=== PATIENT | male | born 1960 | race Caucasian/White ===

== ENCOUNTER 2017-10-13 10:21 | Emergency (ER) | payer BC ==
[~2017-10-13] VITALS: Ht 170.2 cm; Wt 88.5 kg
[~2017-10-13 10:21] MED LIST: ASPI325 PO; ATOR80 PO; CLOP75 PO; INSULANPEN; LISI5 PO; METF500; METF500 PO; METO10 PO; METO25 PO; PANT40 PO
[2017-10-13] MEDS ORDERED: ASPI81CH PO (10:38)
[2017-10-13] MEDS ORDERED: METF500 PO (10:40)
[2017-10-13] MEDS ORDERED: TAMS.4ER PO (10:42)
[2017-10-13 10:44] LABS: BASOPHILS ABSOLUTE AUTO 0.04 K/mm3 (0.00-0.23); BASOPHILS PERCENT AUTO 1 % (0-2); EOSINOPHILS ABSOLUTE AUTO 0.07 K/mm3 (0.00-0.68); EOSINOPHILS PERCENT AUTO 1 % (0-6); Hematocrit 44.3 % (37.0-53.0); IMMATURE GRAN ABSOLUTE AUTO 0.01 K/mm3 (0.00-0.10); IMMATURE GRAN PERCENT AUTO 0 % (0-1); LYMPHOCYTES ABSOLUTE AUTO 0.86 K/mm3 (0.84-5.20); LYMPHOCYTES PERCENT AUTO 12 % (21-46); MONOCYTES ABSOLUTE AUTO 0.35 K/mm3 (0.16-1.47); MONOCYTES PERCENT AUTO 5 % (4-13); Mean Corpuscular HGB 30.9 pg (26.0-34.0); Mean Corpuscular HGB Conc 33.9 g/dL (31.5-36.5); Mean Corpuscular Volume 91 fL (80-100); Mean Platelet Volume 10.1 fL (9.1-12.4); NEUTROPHILS ABSOLUTE AUTO 5.69 K/mm3 (1.96-9.15); NEUTROPHILS PERCENT AUTO 81 % (41-73); Platelet Count 160 K/mm3 (150-400); RDW Coefficient Variation 13.2 % (11.7-14.2); RDW Standard Deviation 44.3 fL (35.1-46.3); Red Blood Cell Count 4.86 M/mm3 (4.30-5.90); White Blood Cell Count 7.02 K/mm3 (4.00-11.30)
[2017-10-13 11:08] LABS: Alanine Aminotransfer (ALT/SGP 54 U/L (12-78); Albumin, Blood 3.4 g/dL (3.4-5.0); Alk Phos 89 U/L (50-136); Anion Gap 11 mmol/L (6-16); Aspartate Aminotrans (AST/SGOT 28 U/L (12-37); Bilirubin, Total 0.5 mg/dL (0.1-1.0); Blood Urea Nitrogen 15 mg/dL (8-24); Bun/Creatinine Ratio 18.3 (12.0-20.0); CO2, Blood 21 mmol/L (21-32); Calcium, Blood 8.6 mg/dL (8.5-10.1); Chloride, Blood 108 mmol/L (98-108); Creatinine, Blood 0.82 mg/dL (0.60-1.20); Globulin, Blood 3.3 g/dL (2.2-4.0); Glomerular Filtration Rate >60 (60-); Glucose, Blood 157 mg/dL (70-99); Potassium, Blood 4.1 mmol/L (3.5-5.5); Sodium, Blood 140 mmol/L (136-145); Total Protein, Blood 6.7 g/dL (6.4-8.2); Troponin I <0.015 ng/mL (0.000-0.040)
[2018-07-18] MEDS ORDERED: PANT40 PO (10:32)
== END 2017-10-13 13:12 | disposition home or self-care (01) ==
LOC: ER 10:21
PROVIDERS: Emergency Medicine
DX: I47.1 Supraventricular tachycardia (principal); R07.9 Chest pain, unspecified; Z88.0 Allergy status to penicillin; Z79.82 Long term (current) use of aspirin; Z79.4 Long term (current) use of insulin; Z79.899 Other long term (current) drug therapy
CPT/HCPCS: 71046; 80053; 83735; 84484; 85025; 93005; 93010; 96360; 99284; J7030

== ENCOUNTER 2018-08-20 12:50 | Day surgery (SDC) | payer BC ==
[~2018-08-20] VITALS: Ht 167.6 cm; Wt 96.2 kg
[~2018-08-20 12:50] MED LIST changes: +ASPI81CH PO; +TAMS.4ER PO
== END 2018-08-20 16:14 | disposition home or self-care (01) ==
LOC: ORSCSDS 12:50
PROVIDERS: Internal Medicine Gastroenterology
PROC: 0DBL8ZX Excision of Transverse Colon, Via Natural or Artificial Opening Endoscopic, Diagnostic (ICD-10-PCS; principal; 2018-08-20 14:15)
PROC: 0DBK8ZX Excision of Ascending Colon, Via Natural or Artificial Opening Endoscopic, Diagnostic (ICD-10-PCS; principal; 2018-08-20 14:15)
DX: Z12.11 Encounter for screening for malignant neoplasm of colon (principal); D12.2 Benign neoplasm of ascending colon; D12.3 Benign neoplasm of transverse colon; K57.30 Diverticulosis of large intestine without perforation or abscess without bleeding; E88.81 Metabolic syndrome and other insulin resistance; F32.9 Major depressive disorder, single episode, unspecified; Z87.891 Personal history of nicotine dependence; E11.9 Type 2 diabetes mellitus without complications; Z79.82 Long term (current) use of aspirin; Z79.84 Long term (current) use of oral hypoglycemic drugs; Z79.899 Other long term (current) drug therapy
CPT/HCPCS: 82947; 88305; J7120

== ENCOUNTER 2023-11-28 13:57 | Observation (INO) | payer OTHER ==
[~2023-11-28] VITALS: Ht 170.2 cm; Wt 84.1 kg
[~2023-11-28 13:57] MED LIST changes: +CARV6.25 PO; +LOSA50 PO; +Lopressor 25 mg25 MG PO; +Prinivil10 MG PO
[2023-11-28 14:28] LABS: BASOPHILS ABSOLUTE AUTO 0.03 K/mm3 (0.00-0.23); BASOPHILS PERCENT AUTO 0 % (0-2); EOSINOPHILS ABSOLUTE AUTO 0.01 K/mm3 (0.00-0.68); EOSINOPHILS PERCENT AUTO 0 % (0-6); Hematocrit 43.5 % (37.0-53.0); Hemoglobin 15.7 g/dL (13.5-17.5); IMMATURE GRAN PERCENT AUTO 1 % (0-1); LYMPHOCYTES ABSOLUTE AUTO 0.52 K/mm3 (0.84-5.20); LYMPHOCYTES PERCENT AUTO 3 % (21-46); MONOCYTES ABSOLUTE AUTO 0.39 K/mm3 (0.16-1.47); MONOCYTES PERCENT AUTO 2 % (4-13); Mean Corpuscular HGB 32.7 pg (26.0-34.0); Mean Corpuscular HGB Conc 36.1 g/dL (31.5-36.5); Mean Corpuscular Volume 91 fL (80-100); Mean Platelet Volume 9.9 fL (9.1-12.4); NEUTROPHILS ABSOLUTE AUTO 16.85 K/mm3 (1.96-9.15); NEUTROPHILS PERCENT AUTO 94 % (41-73); Platelet Count 192 K/mm3 (150-400); RDW Coefficient Variation 12.6 % (11.7-14.2); RDW Standard Deviation 41.4 fL (35.1-46.3)
[2023-11-28 14:58] LABS: Albumin, Blood 3.7 g/dL (3.4-5.0); Bilirubin, Total 0.8 mg/dL (0.1-1.0); Bun/Creatinine Ratio 19.2 (12.0-20.0); Calcium, Blood 9.6 mg/dL (8.5-10.1); Creatinine, Blood 0.73 mg/dL (0.60-1.20); Globulin, Blood 3.6 g/dL (2.2-4.0); Potassium, Blood 4.6 mmol/L (3.5-5.5); Total Protein, Blood 7.3 g/dL (6.4-8.2)
[2023-11-28] MEDS ORDERED: Pantoprazole Sodium 40 MG Injection IV ONE (18:40)
[2023-11-28] MEDS ORDERED: Ondansetron HCl 2 MG / ML 2ML Vial IV ONE ×2 (18:40→20:45)
[2023-11-28] MEDS ORDERED: NS 1,000 ML IV SCH (18:40)
[2023-11-28] MEDS ORDERED: FentaNYL Citrate 50 MCG/ML 2 ML Injection IV ONE (20:40)
[2023-11-28] MEDS ORDERED: Ondansetron HCl 2 MG / ML 2ML Vial IV PRN (23:00)
[2023-11-28] MEDS ORDERED: FentaNYL Citrate 50 MCG/ML 2 ML Injection IV PRN (23:05)
[2023-11-28] MEDS ORDERED: NS 1,000 ML IV ONE (23:10)
[2023-11-28] MEDS ORDERED: Pantoprazole Sodium 40 MG in NS 50 ML IV SCH (23:10)
[2023-11-29] MEDS ORDERED: NS 1,000 ML IV ONE (00:15)
[2023-11-29 01:25] LABS: International Normalized Ratio 0.98; Prothrombin Time Results 10.5 Sec (9.7-11.5)
[2023-11-29] MEDS ORDERED: Mag Hydrox/Al Hydrox/Simeth 72 ML,Lidocaine 2% Viscous Soln 36 ML,Atropine/Scopalam/Hyo... PO PRN (01:35)
--- NOTE | 2023-11-29 01:54 | NUR ---
ADMISSION ASSESSMENT: PT FROM ED TO PCU ROOM 3 FOR ADMITTING DX OF C/P WITH ACCOMPANIED N/V ABDOMINAL PAIN. HE IS AXO X 4 AND HAS SLOW SPEECH, CALM AND COOPERATIVE WITH STAFF. HE HAS HX OF BIPOLAR. HE IS SINUS AND HAS UPPER EPIGASTRIC PAIN WITH TROP OF 215. RESPIRATORY WNL, LUNG SOUNDS CLEAR. ABDOMINAL PAIN IS 7/10 AT THIS TIME. DENIES ANY NAUSEA BUT REQUEST MEDICATION FOR PAIN. HE IS WEAK ON TRANSFER FROM [facility] TO BED BUT AMBULATORY. HE HAS 18G TO LAC. HARDY DENIES NEEDS AND APPEARS STABLE. CALL LIGHT IN REACH AND VSS.
[2023-11-29 03:24] VITALS: BP 119/63
[2023-11-29 04:16] LABS: Source, Urine Clean Catch
[2023-11-29 04:23] LABS: BASOPHILS ABSOLUTE AUTO 0.03 K/mm3 (0.00-0.23); BASOPHILS PERCENT AUTO 0 % (0-2); EOSINOPHILS PERCENT AUTO 0 % (0-6); Hematocrit 37.6 % (37.0-53.0); Hemoglobin 13.2 g/dL (13.5-17.5); IMMATURE GRAN ABSOLUTE AUTO 0.05 K/mm3 (0.00-0.10); IMMATURE GRAN PERCENT AUTO 0 % (0-1); LYMPHOCYTES ABSOLUTE AUTO 1.24 K/mm3 (0.84-5.20); LYMPHOCYTES PERCENT AUTO 10 % (21-46); MONOCYTES ABSOLUTE AUTO 0.67 K/mm3 (0.16-1.47); MONOCYTES PERCENT AUTO 6 % (4-13); Mean Corpuscular HGB 32.6 pg (26.0-34.0); Mean Corpuscular HGB Conc 35.1 g/dL (31.5-36.5); Mean Corpuscular Volume 93 fL (80-100); Mean Platelet Volume 10.2 fL (9.1-12.4); NEUTROPHILS ABSOLUTE AUTO 9.97 K/mm3 (1.96-9.15); NEUTROPHILS PERCENT AUTO 83 % (41-73); Platelet Count 156 K/mm3 (150-400); RDW Standard Deviation 43.7 fL (35.1-46.3); Red Blood Cell Count 4.05 M/mm3 (4.30-5.90); White Blood Cell Count 11.96 K/mm3 (4.00-11.30)
[2023-11-29 04:51] LABS: Albumin, Blood 3.1 g/dL (3.4-5.0); Albumin/Globulin Ratio 1.1 (0.8-1.8); Bilirubin, Total 0.6 mg/dL (0.1-1.0); Bun/Creatinine Ratio 31.2 (12.0-20.0); Calcium, Blood 8.7 mg/dL (8.5-10.1); Creatinine, Blood 0.7 mg/dL (0.60-1.20); Globulin, Blood 2.7 g/dL (2.2-4.0); Potassium, Blood 3.9 mmol/L (3.5-5.5); Total Protein, Blood 5.8 g/dL (6.4-8.2)
[2023-11-29 05:26] LABS: Bilirubin, Urine Neg (Neg); Blood, Urine Neg (Neg); Glucose Qualitative, Urine 2+ (Neg); Ketones, Urine 2+ (Neg); Leukocyte Esterase, Urine Neg (Neg); Nitrite, Urine Neg (Neg); Protein, Urine 1+ (Neg); Urobilinogen, Urine NORM (Normal)
--- NOTE | 2023-11-29 05:35 | NUR ---
PCU FEDERAL AGENT SUMMARY: PT HAD NO ACUTE CHANGES IN CONDITION SINCE ADMISSION ASSESSMENT. HE REMAINED AXO X 4 AND HEMODYNAMICALLY STABLE. PROTONIX AND FLUIDS STARTED PER EMAR. PT HAD REPORTED ABDOMINAL PAIN AND MEDICATED WITH FENTANYL UPON ADMISSION. SOON AFTER, HE REPORTED PAIN AGAIN AND WAS GIVEN GI COCKTAIL WITH RELIEF. HE DENIES ANY SOB AND SATTING 97% ON RA W/O DIFFICULTY. HE ENDORSES UPPER EPIGASTRIC PAIN. NO N/V T/O THE SHIFT. HE REMAINS STABLE AT THIS TIME SLEEPING IN ROOM WITH ALL VSS AND CALL LIGHT IN REACH.
[2023-11-29 05:50] LABS: Appearance, Urine Clear (Clear); Color, Urine Yellow (P-Yellow)
[2023-11-29] MEDS ORDERED: Insulin Human Lispro 100 Units/ML 3ML Syringe SC SCH (07:30)
[2023-11-29 07:33] VITALS: BP 137/73
[2023-11-29] MEDS ORDERED: Metoprolol Tartrate 25 MG Tab PO SCH (09:00)
[2023-11-29] MEDS ORDERED: Losartan Potassium 50 MG Tab PO SCH (09:00)
[2023-11-29] MEDS ORDERED: Aspirin 81 MG TabEC PO SCH (09:00)
--- NOTE | 2023-11-29 11:35 | NUR ---
PT RETURNED FROM IMAGING AND RESTARTED FLUIDS & PROTONIX PER EMAR. PT IS SITTING AT BEDSIDE EATING. CALL LIGHT WITHIN REACH AND BED AT LOWEST POSITION.
[2023-11-29 12:44] VITALS: BP 128/80
[2023-11-29 16:19] VITALS: BP 128/81
--- NOTE | 2023-11-29 18:15 | NUR ---
END OF SHIFT SUMMARY: IS A&OX4 AND ACTIVE IN HIS CARE. IS SATTING >90% ON ROOM AIR. ON TELE SHOWING NSR WITH A RATE OF 90'S. HAD A RUN OF SVT @ APPROXIMATELY 17:34 BUT CONVERTED BACK TO NSR WITH A RATE OF 80-90'S.IS SLOW TO SPEECH BUT ANSWERS APPROPRIATELY. NEEDED COVERAGE FOR GLUCOSE LEVEL.IS SBA TO USE THE BATHROOM. WAS MEDICATED FOR SOME UPPER GASTRIC PAIN PER EMAR. HIS BROTHER SONY CAME TO VISIT AND INFORMED US THAT SHAWNA IS A "MAJOR ALCOHOLIC". I ASKED PT AND HE STATED HE DRINKS A "BEER OR 2 EVERY OTHER DAY AND HIS LAST DRINK WAS 11/23. PT STATED RIGHT AWAY WHEN ASKING THAT HE DOES NOT DRINK THAT OFTEN HIS BROTHER STATES. WAS ABLE TO GET SOME REST TODAY AND WILL REPORT TO ONCOMING NIGHT RN.
[2023-11-29 19:34] VITALS: BP 143/81
[2023-11-29] MEDS ORDERED: Enoxaparin 40 MG/0.4 ML SYR SC SCH (20:00)
[2023-11-29] MEDS ORDERED: Atorvastatin 40 MG Tab PO SCH (20:00)
[2023-11-29] MEDS ORDERED: Tamsulosin HCl 0.4 MG Cap PO SCH (21:00)
[2023-11-29 23:03] VITALS: BP 129/75
[2023-11-30 02:53] VITALS: BP 136/75
[2023-11-30 04:03] LABS: BASOPHILS ABSOLUTE AUTO 0.03 K/mm3 (0.00-0.23); BASOPHILS PERCENT AUTO 1 % (0-2); EOSINOPHILS ABSOLUTE AUTO 0.09 K/mm3 (0.00-0.68); EOSINOPHILS PERCENT AUTO 1 % (0-6); Hematocrit 36.4 % (37.0-53.0); Hemoglobin 12.7 g/dL (13.5-17.5); IMMATURE GRAN ABSOLUTE AUTO 0.02 K/mm3 (0.00-0.10); IMMATURE GRAN PERCENT AUTO 0 % (0-1); LYMPHOCYTES ABSOLUTE AUTO 1.36 K/mm3 (0.84-5.20); LYMPHOCYTES PERCENT AUTO 22 % (21-46); MONOCYTES ABSOLUTE AUTO 0.41 K/mm3 (0.16-1.47); MONOCYTES PERCENT AUTO 7 % (4-13); Mean Corpuscular HGB 32.6 pg (26.0-34.0); Mean Corpuscular HGB Conc 34.9 g/dL (31.5-36.5); Mean Corpuscular Volume 94 fL (80-100); Mean Platelet Volume 9.8 fL (9.1-12.4); NEUTROPHILS PERCENT AUTO 70 % (41-73); Platelet Count 120 K/mm3 (150-400); RDW Coefficient Variation 12.9 % (11.7-14.2); RDW Standard Deviation 44.1 fL (35.1-46.3); Red Blood Cell Count 3.89 M/mm3 (4.30-5.90); White Blood Cell Count 6.31 K/mm3 (4.00-11.30)
[2023-11-30 04:22] LABS: Bun/Creatinine Ratio 15.5 (12.0-20.0); Calcium, Blood 8.3 mg/dL (8.5-10.1); Creatinine, Blood 0.91 mg/dL (0.60-1.20); Potassium, Blood 4.1 mmol/L (3.5-5.5)
--- NOTE | 2023-11-30 05:50 | NUR ---
1915 Assumed care of pt, bedside report completed. Shift plan of care reviewed, all questions answered. 0001 made NPO Pt with uneventful shift, though reporting mid sternal pain x2 level 8 out of 10. Gave GI cocktail with good results first episode, second episode too soon for repeat cocktail, Fentanyl 25 mcg IVP given with good results. H/H appears to be drifting down over last 48 hours, will report to oncoming shift. Please see full assessment for further details. VSS. No additional complaint/concerns at this time, will continue to monitor.
[2023-11-30] MEDS ORDERED: Regadenoson 0.4 MG/5 ML SYRINGE ONE (07:37)
[2023-11-30] MEDS ORDERED: Caffeine Citrated 60 MG/3 ML Vial ONE (07:37)
[2023-11-30] MEDS ORDERED: Acetaminophen 500 MG Tab PO PRN (08:20)
[2023-11-30 08:34] VITALS: BP 160/91
[2023-11-30] MEDS ORDERED: Pantoprazole Sodium 40 MG Injection IV SCH (09:00)
--- NOTE | 2023-11-30 10:39 | NUR ---
PT IS A/O X4. HE DENIES CP, DOES REPORT EPIGASTRIC PAIN WHEN EATING, THIS WAS RESOLVED WITH GI COCKTAIL AND PROTONIX. HE DID COMPLAIN OF RIGHT SIDED TEMPORAL PAIN THIS AM WHICH WAS TREATED WELL WITH TYLENOL. VSS. NO RESPIRATORY DISTRESS NOTED, NO NASAL FLARRING, NO RETRACTIONS. HE IS UP INDEPENDANTLY TO BATHROOM. HE IS IN THE PROCESS OF COMPLETING THE SECOND HALF OF HIS STRESS TEST AT THIS TIME. HE IS OTHERWISE RESTING WELL. NO GI/ COMPLAINTS. SKIN INTACT.
[2023-11-30 11:39] VITALS: BP 144/80
[2023-11-30 16:13] VITALS: BP 157/87
--- NOTE | 2023-11-30 18:21 | NUR ---
PT EXPRESSED UNDERSTANDING OF DC TEACHING, DENIES FURTHER QUESTIONS OR NEEDS. NO NEW MEDICATIONS. IVs REMOVED AND PRESSURE DRESSED
== END 2023-11-30 18:30 | disposition home or self-care (01) ==
LOC: ER 13:57 → PCU 13:58 → ERHOLD 13:58 → PCU 11-29 00:04
PROVIDERS: Family Medicine; Nurse Practitioner; ADMIT Internal Medicine
DX: R10.13 Epigastric pain (principal); R79.89 Other specified abnormal findings of blood chemistry; E66.9 Obesity, unspecified; E78.5 Hyperlipidemia, unspecified; N40.1 Benign prostatic hyperplasia with lower urinary tract symptoms; K76.0 Fatty (change of) liver, not elsewhere classified; M16.11 Unilateral primary osteoarthritis, right hip; G47.33 Obstructive sleep apnea (adult) (pediatric); I25.118 Atherosclerotic heart disease of native coronary artery with other forms of angina pectoris; F31.9 Bipolar disorder, unspecified; E11.65 Type 2 diabetes mellitus with hyperglycemia; Z88.0 Allergy status to penicillin; Z79.84 Long term (current) use of oral hypoglycemic drugs; Z79.899 Other long term (current) drug therapy; Z87.891 Personal history of nicotine dependence
CPT/HCPCS: 36415; 74177; 78452; 80048; 80053; 82947; 83690; 83880; 84484; 85025; 85610; 93005; 93010; 93017; 93306; 96361; 96374-59; 96375; 96376; 99285-25; A9270; A9500; C9113; G0378; J0706; J1650; J2405; J2785; J3010; J7030; Q9967

== ENCOUNTER 2025-01-09 10:25 | Emergency (ER) | payer OTHER ==
[~2025-01-09] VITALS: Ht 170.2 cm; Wt 93.0 kg
[2025-01-09] MEDS ORDERED: NAPR500 PO (11:45)
[2025-01-09] MEDS ORDERED: OxyCODONE 5 mg/Acetamin 325 mg TABLET PO ONE (12:35)
[2025-01-09] MEDS ORDERED: Percocet 5-3251 EACH PO (13:15)
[2025-01-09] MEDS ORDERED: ULTRA-LIGHT RO1 EACH MC (13:15)
[2025-01-09] MEDS ORDERED: Ondansetron 4 MG SoluTab SL ONE (14:05)
[2025-01-09 14:43] VITALS: BP 124/72
== END 2025-01-09 14:44 | disposition home or self-care (01) ==
LOC: ER 10:25
DX: S96.911A Strain of unspecified muscle and tendon at ankle and foot level, right foot, initial encounter (principal); M16.11 Unilateral primary osteoarthritis, right hip; K21.9 Gastro-esophageal reflux disease without esophagitis; E11.9 Type 2 diabetes mellitus without complications; W01.0XXA Fall on same level from slipping, tripping and stumbling without subsequent striking against object, initial encounter; Z87.891 Personal history of nicotine dependence; Z79.4 Long term (current) use of insulin; Z79.84 Long term (current) use of oral hypoglycemic drugs; Z79.82 Long term (current) use of aspirin; Z79.899 Other long term (current) drug therapy; Z88.0 Allergy status to penicillin
CPT/HCPCS: 72192; 73502; 73610; 99284-25; A9270

== ENCOUNTER 2025-05-18 09:31 | Day surgery (SDC) | payer OTHER ==
[~2025-05-18] VITALS: Ht 167.6 cm; Wt 81.2 kg
[2025-05-18] VITALS (10 sets, daily range): BP systolic 94–127; BP diastolic 57–81
[~2025-05-18 09:31] MED LIST changes: +EZET10 PO; +Januvia100 MG PO; +NAPR500 PO; +Percocet 5-3251 EACH PO; +ULTRA-LIGHT RO1 EACH MC
[2025-05-18] MEDS ORDERED: Tranexamic Acid 100 ML IV SCH (10:35)
[2025-05-18] MEDS ORDERED: Ropivacaine 0.5% HCl/Pf 123.125 MG,EPINEPHrine HCL 0.25 MG,Ketorolac Tromethamine 15 MG... INFIL SCH (10:35)
[2025-05-18] MEDS ORDERED: Chlorhexidine Mouth Care 15 ML UDC MT SCH (10:35)
[2025-05-18] MEDS ORDERED: CeFAZolin Sodium 2,000 MG in NS 100 ML IV SCH ×2 (10:35→21:15)
[2025-05-18] MEDS ORDERED: Prochlorperazine Edisylate 10 mg Vial IV PRN (12:00)
[2025-05-18] MEDS ORDERED: Metoclopramide HCl 5MG / ML 2ML Vial IV PRN (12:05)
[2025-05-18] MEDS ORDERED: Ondansetron HCl 2 MG / ML 2ML Vial IV PRN ×2 (12:05→14:45)
[2025-05-18] MEDS ORDERED: HYDROmorphone HCl/Pf 1MG SYR IV PRN ×3 (12:10→14:45)
[2025-05-18] MEDS ORDERED: Magnesium Hydroxide Conc 10 ML UDC PO PRN (12:10)
[2025-05-18] MEDS ORDERED: FLU VACC TS2025(65UP)/MF59C/PF 45 MCG/0.5 ML SYRINGE IM SCH (12:20)
--- NOTE | 2025-05-18 12:25 | NUR ---
Pt SBA, required WC for distance travel. History, Chart, Medications and Allergies reviewed before start of procedure. Patient confirms NPO status and agrees with scheduled surgery. Patient reports completing Chlorhexadine shower X2 prior to admission to hospital. Surgical site prepped with 2% Chlorhexidine cloth wipe.
[2025-05-18] MEDS ORDERED: FentaNYL Citrate 50 MCG/ML 2 ML Injection ONE (12:51)
[2025-05-18] MEDS ORDERED: Midazolam HCl 1MG / ML 2ML Vial ONE ×2 (12:51→13:30)
[2025-05-18] MEDS ORDERED: Phenylephrine HCl 100 MCG/ML-NS 10MLSYR (1MG/10ML) ONE (13:23)
[2025-05-18] MEDS ORDERED: ePHEDrine Sulfate 50 MG/ML 1ML Injection ONE (13:25)
--- NOTE | 2025-05-18 13:44 | NUR ---
05/18/25 1344 Ashlee,Ary SPINAL BLOCK COMPLETED BY UPON ENTRY TO OR.
[2025-05-18] MEDS ORDERED: FentaNYL Citrate 50 MCG/ML 2 ML Injection IV PRN ×2 (14:45)
[2025-05-18] MEDS ORDERED: Ondansetron HCl 2 MG / ML 2ML Vial ONE (14:49)
[2025-05-18] MEDS ORDERED: Metoclopramide HCl 5MG / ML 2ML Vial ONE (15:01)
[2025-05-18] MEDS ORDERED: Prochlorperazine Edisylate 10 mg Vial ONE (15:22)
[2025-05-18] MEDS ORDERED: Insulin Regular 100 UNIT/ML 10ML Vial SC SCH (16:30)
[2025-05-18] MEDS ORDERED: MetFORMIN HCl 500 mg PO SCH (17:00)
--- NOTE | 2025-05-18 17:04 | NUR ---
POST-OP PATIENT TO ROOM 221 @ 1540 VSS, AND CONTINUE. PATIENT REPORTS FEELING NAUSEATED. PHENERGAN GIVEN. REPORTS NUMBNESS TO BILAT FEET AND UNABLE TO WIGGLE TOES. CAP REFILL WNL. PULSES PALP. DRESSING TO L HIP IS C/D/I. PATIENT IS AOX4. ABLE TO MAKE NEEDS KNOWN. ICE TO HIP, SCDS AND TEDS IN PLACE. CALL LIGHT IN REACH.
[2025-05-18] MEDS ORDERED: Ketorolac Tromethamine 15mg Vial IV SCH (18:00)
--- NOTE | 2025-05-18 18:45 | NUR ---
SHIFT SUMMARY PATIENT IS TOLERTING PO INTAKE. ABLE TO USE CALL LIGHT. VSS. PATIENT WAS UNABLE TO VOID AND STRAIGHT CATH OF 400 OUT AT 1830. PATIENT STILL REPORTS NUMBNESS TO BILAT LE. DENIES PAIN AT THIS TIME. DRESSING TO RIGHT HIP IS C/D/I. PLAN TO WORK WITH PT TOMORROW. MEDICATED PER EMAR WITH TORADOL. ICE AND SCDS IN PLACE. CALLS APPROPRIATELY.
[2025-05-19 00:06] VITALS: BP 117/68
[2025-05-19 04:45] VITALS: BP 133/71
[2025-05-19 05:02] LABS: BASOPHILS ABSOLUTE AUTO 0.06 K/mm3 (0.00-0.23); BASOPHILS PERCENT AUTO 1 % (0-2); EOSINOPHILS ABSOLUTE AUTO 0.19 K/mm3 (0.00-0.68); EOSINOPHILS PERCENT AUTO 2 % (0-6); Hematocrit 33.0 % (37.0-53.0); Hemoglobin 11.5 g/dL (13.5-17.5); IMMATURE GRAN ABSOLUTE AUTO 0.03 K/mm3 (0.00-0.10); IMMATURE GRAN PERCENT AUTO 0 % (0-1); LYMPHOCYTES ABSOLUTE AUTO 1.66 K/mm3 (0.84-5.20); LYMPHOCYTES PERCENT AUTO 19 % (21-46); MONOCYTES ABSOLUTE AUTO 0.69 K/mm3 (0.16-1.47); MONOCYTES PERCENT AUTO 8 % (4-13); Mean Corpuscular HGB Conc 34.8 g/dL (31.5-36.5); Mean Corpuscular Volume 93 fL (80-100); NEUTROPHILS ABSOLUTE AUTO 5.97 K/mm3 (1.96-9.15); NEUTROPHILS PERCENT AUTO 70 % (41-73); NRBC ABSOLUTE 0.00 K/mm3 (0.00-0.02); NRBC Auto 0.0 /100 WBC (0.0-0.2); Platelet Count 122 K/mm3 (150-400); RDW Coefficient Variation 12.7 % (11.7-14.2); RDW Standard Deviation 43.0 fL (35.1-46.3)
[2025-05-19 05:39] LABS: Anion Gap 8.0 mmol/L (3-11); Blood Urea Nitrogen 11.0 mg/dL (8-24); CO2, Blood 25.0 mmol/L (21-32); Calcium, Blood 8.6 mg/dL (8.5-10.1); Chloride, Blood 105.0 mmol/L (98-108); Creatinine, Blood 0.85 mg/dL (0.60-1.20); Glucose, Blood 109.0 mg/dL (70-99); Magnesium, Blood 1.6 mg/dL (1.6-2.4); Potassium, Blood 4.0 mmol/L (3.5-5.5); Sodium, Blood 134.0 mmol/L (136-145)
--- NOTE | 2025-05-19 06:43 | NUR ---
SHIFT SUMMARY PT ADMITTED FOR R TOTAL HIP ARTHROPLASTY. PRINEO DRESSING C/D/I. PT C/O OF NAUSEA THROUGHOUT SHIFT MEDICATED PER EMAR WITH PT REPORTING RELIEF OF SYMPTOMS. PAIN MANAGED WELL PER EMAR. POLAR PACK IN PLACE. CALL LIGHT WITHIN REACH.
[2025-05-19 08:02] VITALS: BP 128/84
[2025-05-19] MEDS ORDERED: DOCU100 PO (08:29)
[2025-05-19] MEDS ORDERED: ASPI81CH PO (08:29)
[2025-05-19] MEDS ORDERED: ACET500 PO (08:29)
[2025-05-19] MEDS ORDERED: OXYC5 PO (08:30)
--- NOTE | 2025-05-19 10:08 | NUR ---
Pt. is awake in bed and welcomes my visit. Pt. is pleasant. Facilitated a life review and considered matters of blanca and belief. Listened with interest and empathy. Pt. verbalized that he practices Mass at home every night. Pt. displayed evidence of trust, but also displayed evidence of being weak in his upper extremities. Pt. welcomed prayer. Prayed with P.t Pt. verbalized gratitue for the spiritual care visit.
--- NOTE | 2025-05-19 12:17 | NUR ---
PT DC'D @1215 ASSUMED CARE OF PT @0700. AXO4. VSS. FLAT AFFECT NOTED. TOLERATED PO INTAKE WELL. VOIDING. AMBULATED TO BATHROOM WELL. PHYSICAL THERAPY SESSION COMPLETED AND DEEMED OK TO DC DESPITE SOME BASELINE DEFICITS WITH GAIT. IV REMOVED. DC INSTRUCTIONS PROVIDED TO PT AND BROTHER WHO IS STAYING WITH PATIENT. WAS SLIGHTLY NAUSEASOUS THIS AM UPON ASSUMPTION BUT RESOLVED W/O INTERVENTION. DRESSING CDI TO R HIP - EXTRA AQUACEL DRESSING PROVIDED FOR HOME USE IF NEEDED. COLD PACK PROVIDED AND SENT PAULA WITH PT. PT WHEELED OUT OF FACILITY WITH BELONGINGS @1215.
== END 2025-05-19 12:16 | disposition home or self-care (01) ==
LOC: ORSCMMR 09:31 → ORD 11:30 → ORSCMMR 11:30 → SURS 15:51 → ORSCMMR 05-19 12:16
PROVIDERS: Orthopaedic Surgery
PROC: 0SR90JA Replacement of Right Hip Joint with Synthetic Substitute, Uncemented, Open Approach (ICD-10-PCS; principal; 2025-05-18 11:30)
DX: M16.11 Unilateral primary osteoarthritis, right hip (principal); I25.10 Atherosclerotic heart disease of native coronary artery without angina pectoris; I25.2 Old myocardial infarction; Z87.891 Personal history of nicotine dependence; E11.9 Type 2 diabetes mellitus without complications; K21.9 Gastro-esophageal reflux disease without esophagitis; Z79.899 Other long term (current) drug therapy; Z79.84 Long term (current) use of oral hypoglycemic drugs
CPT/HCPCS: 36415; 51701; 72170; 80048; 82947; 83735; 85025; 97110; 97116; 97162; 97530; A9270; C1776; J0166; J0690; J0735; J0780; J1815; J1885; J2250; J2371; J2405; J2704; J2765; J2795; J3010; J7120

== ENCOUNTER 2025-05-24 02:20 | Emergency (ER) | payer OTHER ==
[~2025-05-24] VITALS: Ht 167.6 cm; Wt 82.5 kg
[~2025-05-24 02:20] MED LIST changes: +ACET500 PO; +DOCU100 PO; +OXYC5 PO
[2025-05-24 02:59] LABS: BASOPHILS ABSOLUTE AUTO 0.04 K/mm3 (0.00-0.23); BASOPHILS PERCENT AUTO 1 % (0-2); EOSINOPHILS ABSOLUTE AUTO 0.15 K/mm3 (0.00-0.68); EOSINOPHILS PERCENT AUTO 2 % (0-6); Hematocrit 32.2 % (37.0-53.0); Hemoglobin 11.7 g/dL (13.5-17.5); IMMATURE GRAN ABSOLUTE AUTO 0.02 K/mm3 (0.00-0.10); IMMATURE GRAN PERCENT AUTO 0 % (0-1); LYMPHOCYTES ABSOLUTE AUTO 1.23 K/mm3 (0.84-5.20); LYMPHOCYTES PERCENT AUTO 18 % (21-46); MONOCYTES ABSOLUTE AUTO 0.47 K/mm3 (0.16-1.47); MONOCYTES PERCENT AUTO 7 % (4-13); Mean Corpuscular HGB Conc 36.3 g/dL (31.5-36.5); Mean Corpuscular Volume 89 fL (80-100); NEUTROPHILS ABSOLUTE AUTO 4.92 K/mm3 (1.96-9.15); NEUTROPHILS PERCENT AUTO 72 % (41-73); NRBC ABSOLUTE 0.00 K/mm3 (0.00-0.02); NRBC Auto 0.0 /100 WBC (0.0-0.2); Platelet Count 177 K/mm3 (150-400); RDW Coefficient Variation 12.4 % (11.7-14.2); RDW Standard Deviation 40.2 fL (35.1-46.3)
[2025-05-24] MEDS ORDERED: Ketorolac Tromethamine 15mg Vial IV ONE (03:05)
[2025-05-24 03:28] LABS: Alanine Aminotransfer (ALT/SGP 34.0 U/L (12-78); Albumin, Blood 3.4 g/dL (3.4-5.0); Albumin/Globulin Ratio 1.1 (0.8-1.8); Anion Gap 9.0 mmol/L (3-11); Aspartate Aminotrans (AST/SGOT 42.0 U/L (12-37); Bilirubin, Total 0.9 mg/dL (0.1-1.0); Blood Urea Nitrogen 11.0 mg/dL (8-24); CO2, Blood 26.0 mmol/L (21-32); Calcium, Blood 9.0 mg/dL (8.5-10.1); Chloride, Blood 98.0 mmol/L (98-108); Creatinine, Blood 0.78 mg/dL (0.60-1.20); Globulin, Blood 3.2 g/dL (2.2-4.0); Glucose, Blood 131.0 mg/dL (70-99); Magnesium, Blood 2.0 mg/dL (1.6-2.4); Potassium, Blood 4.2 mmol/L (3.5-5.5); Sodium, Blood 129.0 mmol/L (136-145); Total Protein, Blood 6.6 g/dL (6.4-8.2)
[2025-05-24] MEDS ORDERED: Morphine Sulfate 4 MG/1 ML Injection IV ONE (04:15)
[2025-05-24] MEDS ORDERED: Ondansetron HCl 2 MG / ML 2ML Vial IV ONE (04:25)
[2025-05-24] MEDS ORDERED: Metoclopramide HCl 5MG / ML 2ML Vial IV ONE (05:05)
[2025-05-24] MEDS ORDERED: Diazepam 5 MG / ML 2ML SYR IV ONE (05:30)
[2025-05-24] MEDS ORDERED: HYDROmorphone HCl/Pf 1MG SYR IV ONE (07:20)
[2025-05-24 08:25] LABS: Source, Urine Clean Catch
[2025-05-24 08:33] LABS: Bilirubin, Urine Neg (Neg); Color, Urine Yellow (P-Yellow); Glucose Qualitative, Urine Neg (Neg); Ketones, Urine 2+ (Neg); Leukocyte Esterase, Urine Neg (Neg); Protein, Urine Neg (Neg); Specific Gravity, Urine 1.010 (1.003-1.022); Urobilinogen, Urine NORM (Normal)
[2025-05-24 09:00] VITALS: BP 147/74
[2025-05-24] MEDS ORDERED: LIDOCAINE1 EAC1 TOP (10:16)
== END 2025-05-24 11:05 | disposition home or self-care (01) ==
LOC: ER 02:20
PROVIDERS: Student in an Organized Health Care Education/Training Program
DX: R10.84 Generalized abdominal pain (principal); Z96.641 Presence of right artificial hip joint; Z87.891 Personal history of nicotine dependence; Z79.82 Long term (current) use of aspirin; Z79.84 Long term (current) use of oral hypoglycemic drugs; Z88.0 Allergy status to penicillin
CPT/HCPCS: 74177; 80053; 81003; 83735; 85025; 96374-59; 96375; 99284-25; A9270; J1171; J1885; J2270; J2405; J2765; J3360; Q9967

== ENCOUNTER 2025-06-07 09:16 | Emergency (ER) | payer OTHER ==
[~2025-06-07] VITALS: Ht 167.6 cm; Wt 82.5 kg
[~2025-06-07 09:16] MED LIST changes: +LIDOCAINE1 EAC1 TOP
[2025-06-07 10:51] LABS: Source, Urine Foley catheter
[2025-06-07 10:57] LABS: Bilirubin, Urine Neg (Neg); Color, Urine Yellow (P-Yellow); Glucose Qualitative, Urine Neg (Neg); Ketones, Urine Neg (Neg); Leukocyte Esterase, Urine Neg (Neg); Protein, Urine Neg (Neg); Specific Gravity, Urine 1.015 (1.003-1.022); Urobilinogen, Urine NORM (Normal)
[2025-06-07 11:07] LABS: Red Blood Cells, Urine 0-2 /hpf (0-2); White Blood Cells, Urine 0-2 /hpf (0-5)
[2025-06-07 11:58] VITALS: BP 155/81
== END 2025-06-07 12:05 | disposition home or self-care (01) ==
LOC: ER 09:16
PROVIDERS: Physician Assistant
DX: N40.0 Benign prostatic hyperplasia without lower urinary tract symptoms (principal); Z59.89 Other problems related to housing and economic circumstances; Z88.0 Allergy status to penicillin; Z79.899 Other long term (current) drug therapy; Z79.82 Long term (current) use of aspirin; Z87.891 Personal history of nicotine dependence
CPT/HCPCS: 51702; 81001; 99283-25

== ENCOUNTER 2025-06-21 09:05 | Inpatient (IN) | payer OTHER ==
[~2025-06-21] VITALS: Ht 170.2 cm; Wt 83.0 kg
[2025-06-21 09:34] LABS: BASOPHILS ABSOLUTE AUTO 0.03 K/mm3 (0.00-0.23); BASOPHILS PERCENT AUTO 1 % (0-2); EOSINOPHILS ABSOLUTE AUTO 0.02 K/mm3 (0.00-0.68); EOSINOPHILS PERCENT AUTO 0 % (0-6); Hematocrit 36.2 % (37.0-53.0); Hemoglobin 12.8 g/dL (13.5-17.5); IMMATURE GRAN ABSOLUTE AUTO 0.06 K/mm3 (0.00-0.10); IMMATURE GRAN PERCENT AUTO 1 % (0-1); LYMPHOCYTES ABSOLUTE AUTO 1.11 K/mm3 (0.84-5.20); LYMPHOCYTES PERCENT AUTO 19 % (21-46); MONOCYTES ABSOLUTE AUTO 0.31 K/mm3 (0.16-1.47); MONOCYTES PERCENT AUTO 5 % (4-13); Mean Corpuscular HGB Conc 35.4 g/dL (31.5-36.5); Mean Corpuscular Volume 89 fL (80-100); NEUTROPHILS ABSOLUTE AUTO 4.47 K/mm3 (1.96-9.15); NEUTROPHILS PERCENT AUTO 75 % (41-73); NRBC ABSOLUTE 0.00 K/mm3 (0.00-0.02); NRBC Auto 0.0 /100 WBC (0.0-0.2); Platelet Count 256 K/mm3 (150-400); RDW Coefficient Variation 12.5 % (11.7-14.2); RDW Standard Deviation 40.7 fL (35.1-46.3)
[2025-06-21 09:59] LABS: Alanine Aminotransfer (ALT/SGP 40.0 U/L (12-78); Albumin, Blood 3.5 g/dL (3.4-5.0); Albumin/Globulin Ratio 1.1 (0.8-1.8); Anion Gap 11.0 mmol/L (3-11); Aspartate Aminotrans (AST/SGOT 26.0 U/L (12-37); Bilirubin, Total 0.5 mg/dL (0.1-1.0); Blood Urea Nitrogen 6.0 mg/dL (8-24); CO2, Blood 26.0 mmol/L (21-32); Calcium, Blood 9.1 mg/dL (8.5-10.1); Chloride, Blood 97.0 mmol/L (98-108); Creatinine, Blood 0.58 mg/dL (0.60-1.20); Globulin, Blood 3.3 g/dL (2.2-4.0); Glucose, Blood 133.0 mg/dL (70-99); Potassium, Blood 4.2 mmol/L (3.5-5.5); Sodium, Blood 130.0 mmol/L (136-145); Total Protein, Blood 6.8 g/dL (6.4-8.2)
[2025-06-21 10:19] LABS: Influenza A, PCR NEGATIVE (NEGATIVE); Influenza B, PCR NEGATIVE (NEGATIVE); Resp Syncytial Virus, PCR NEGATIVE (NEGATIVE); SARS-Cov-2 (COVID-19) PCR, MMC NEGATIVE (NEGATIVE)
[2025-06-21 10:20] LABS: Source, Urine Clean Catch
[2025-06-21 10:24] LABS: Bilirubin, Urine Neg (Neg); Color, Urine Yellow (P-Yellow); Glucose Qualitative, Urine Neg (Neg); Ketones, Urine Neg (Neg); Leukocyte Esterase, Urine 1+ (Neg); Protein, Urine Neg (Neg); Specific Gravity, Urine 1.005 (1.003-1.022); Urobilinogen, Urine NORM (Normal)
[2025-06-21] MEDS ORDERED: NS 1,000 ML IV SCH (10:30)
[2025-06-21 10:32] LABS: Red Blood Cells, Urine 0-2 /hpf (0-2); White Blood Cells, Urine 0-2 /hpf (0-5)
[2025-06-21] MEDS ORDERED: Ketorolac Tromethamine 15mg Vial IV ONE (10:50)
[2025-06-21] MEDS ORDERED: Cyclobenzaprine5 MG (11:26)
[2025-06-21] MEDS ORDERED: FentaNYL Citrate 50 MCG/ML 2 ML Injection IV ONE (13:35)
[2025-06-21] MEDS ORDERED: FLU VACC TS2025(65UP)/MF59C/PF 45 MCG/0.5 ML SYRINGE IM SCH (15:10)
[2025-06-21 15:24] LABS: U Amphetamine Screen Not Detected; U Barbiturate Screen Not Detected; U Benzodiazapine Screen Not Detected; U Buprenorphine Screen Not Detected; U Cannabinoids Screen Not Detected; U Cocaine Screen Not Detected; U Methadone Screen Not Detected; U Methamphetamine Screen Not Detected; U Opiates Screen Not Detected; U Oxycodone Screen Not Detected; U Phencyclidine Screen Not Detected
--- NOTE | 2025-06-21 17:00 | NUR ---
REPORT RECIEVED FROM SHARON KINSEY RN. AWAITING TRANSPORT TO ROOM 324.
[2025-06-21] MEDS ORDERED: FINA5 PO (19:12)
[2025-06-21] MEDS ORDERED: Cyclobenzaprine5 MG PO (19:13)
[2025-06-21] MEDS ORDERED: ZITUVIO100 MG PO (19:14)
[2025-06-21 19:48] VITALS: BP 136/73
[2025-06-21] MEDS ORDERED: MetFORMIN HCl 500 mg PO SCH (21:00)
[2025-06-21] MEDS ORDERED: Ketorolac Tromethamine 15mg Vial IV PRN (21:10)
[2025-06-21] MEDS ORDERED: FentaNYL Citrate 50 MCG/ML 2 ML Injection IV PRN (21:10)
[2025-06-21] MEDS ORDERED: Aspir 8181 MG PO (21:28)
--- NOTE | 2025-06-21 23:26 | NUR ---
ATTEMPTED TO CLARIFY DIFLUCAN ORDER W/DARLYN TRANSIT PLANNING DIRECTOR AFTER PHARMACY QUESTIONED MEDICATION DOSE AND RATIONALE. PT HAS SLIGHT GROIN RASH THAT APPEARS COULD BE FUNGAL IN ORIGIN BUT THERE'S NO INDICATION IN ANY PHYSICIAN DOCUMENTATION PERTAINING TO ANTIFUNGAL MEDICATION NEED OR SUSPICION OF INFECTION. DARLYN REVIEWED CHART AND INSTRUCTED TO HOLD MED A THIS TIME AND CLARIFY ORDER W/ IN AM BUT ALSO STATED TO ALERT MD IF PT DEVELOPS A FEVER OR ANY NEW ONSET DIFFICULTY SWALLOWING.
[2025-06-22] VITALS (7 sets, daily range): BP systolic 91–140; BP diastolic 59–69
[2025-06-22 05:01] LABS: BASOPHILS ABSOLUTE AUTO 0.06 K/mm3 (0.00-0.23); BASOPHILS PERCENT AUTO 1 % (0-2); EOSINOPHILS ABSOLUTE AUTO 0.08 K/mm3 (0.00-0.68); EOSINOPHILS PERCENT AUTO 1 % (0-6); Hematocrit 36.3 % (37.0-53.0); Hemoglobin 12.7 g/dL (13.5-17.5); IMMATURE GRAN ABSOLUTE AUTO 0.06 K/mm3 (0.00-0.10); IMMATURE GRAN PERCENT AUTO 1 % (0-1); LYMPHOCYTES ABSOLUTE AUTO 1.56 K/mm3 (0.84-5.20); LYMPHOCYTES PERCENT AUTO 17 % (21-46); MONOCYTES ABSOLUTE AUTO 0.38 K/mm3 (0.16-1.47); MONOCYTES PERCENT AUTO 4 % (4-13); Mean Corpuscular HGB Conc 35.0 g/dL (31.5-36.5); Mean Corpuscular Volume 90 fL (80-100); NEUTROPHILS ABSOLUTE AUTO 7.22 K/mm3 (1.96-9.15); NEUTROPHILS PERCENT AUTO 77 % (41-73); NRBC ABSOLUTE 0.00 K/mm3 (0.00-0.02); NRBC Auto 0.0 /100 WBC (0.0-0.2); Platelet Count 247 K/mm3 (150-400); RDW Coefficient Variation 12.7 % (11.7-14.2); RDW Standard Deviation 41.6 fL (35.1-46.3)
[2025-06-22 05:42] LABS: Alanine Aminotransfer (ALT/SGP 42.0 U/L (12-78); Albumin, Blood 3.3 g/dL (3.4-5.0); Albumin/Globulin Ratio 1.1 (0.8-1.8); Anion Gap 12.0 mmol/L (3-11); Aspartate Aminotrans (AST/SGOT 31.0 U/L (12-37); Bilirubin, Total 0.4 mg/dL (0.1-1.0); Blood Urea Nitrogen 10.0 mg/dL (8-24); CO2, Blood 22.0 mmol/L (21-32); Calcium, Blood 9.1 mg/dL (8.5-10.1); Chloride, Blood 102.0 mmol/L (98-108); Creatinine, Blood 0.6 mg/dL (0.60-1.20); Globulin, Blood 3.1 g/dL (2.2-4.0); Glucose, Blood 118.0 mg/dL (70-99); Magnesium, Blood 1.5 mg/dL (1.6-2.4); Potassium, Blood 4.1 mmol/L (3.5-5.5); Sodium, Blood 132.0 mmol/L (136-145); Total Protein, Blood 6.4 g/dL (6.4-8.2)
--- NOTE | 2025-06-22 05:44 | NUR ---
SHIFT SUMMARY PT IS A&OX4, FLAT AND WITHDRAWN. HOWEVER, COOPERATIVE WITH CARE. PT ADMITTED AT 1907 FOR GENERALIZED WEAKNESS. PT REPORTS 8-9/10 PAIN OF THE NECK, BACK, LEGS, AND FEET. MEDICATED PER EMAR WITH PAIN MEDICATION AND FLEXIRIL, WITH GOOD EFFECT. PT TO HAVE A MRI OF BRAIN AND SPINE TODAY. PROVIDED PT WITH EDUCATION ABOUT MEDICATIONS AND PURPOSE OF REPOSITIONING T/O SHIFT. NO ACUTE CHANGES THIS SHIFT. PT RESTED T/O SHIFT WITH EVEN AND UNLABORED RESPIRATIONS, BED IN LOWEST POSITION, AND CALL LIGHT WITHIN REACH.
[2025-06-22] MEDS ORDERED: Mag Sulfate 1 GM/D5% 100ML 100 ML IV STA (08:46)
[2025-06-22] MEDS ORDERED: Enoxaparin 40 MG/0.4 ML SYR SC SCH (09:00)
[2025-06-22] MEDS ORDERED: Saxagliptin HCl 2.5 MG TABLET PO SCH (09:00)
[2025-06-22] MEDS ORDERED: NS 250 ML IV PRN (09:30)
--- NOTE | 2025-06-22 10:44 | NUR ---
"Spiritual care | Pt. request P.t is awake in bed when he welcomes my visit. P.t is pleasant. Pts. son is at bedside. Facilitated an update as this solar energy system installer has seen this Pt. in the past. Consideration matters of the Pt. shinto blanca. Pt. displays evidence of a good sense of humor. Prayed with the Pt. Pt. verbalized gratitude for the spiritual care visit."
[2025-06-22] MEDS ORDERED: LORazepam 2 MG/ML 1ML Injection IV ONE (10:55)
--- NOTE | 2025-06-22 18:02 | NUR ---
SHIFT SUMMARY PT AOX3/4, COOPERATIVE, ABLE TO MAKE NEEDS KNOWN. PT IS 2 PERSON ASSSIT TO BATHROOM, ON ROOM AIR, TOLERATING MEDICATIONS. PT DOES NOT TOLERATE BEING IN SUPINE POSITION FOR LONG DUE TO PAIN IN NECK, HEAD NEEDS TO BE CONSTANTLY ELEVATED. PT HAD MRI TODAY, TOLERATED WELL DUE TO MEDICATING PRIOR TO PROCEDURE. UPON RETURN, PT DID NOT SEEM ORIENTED EARLIER IN SHIFT. DID INSTRUCT CONSERVATION BIOLOGY PROFESSOR NOT TO GET PT OOB DUE TO PT SAFETY. MRI LUMBAR AND THORACIC SET UP FOR TOMORROW. BED IN LOWEST POSITION, CALL LIGHT WITHIN REACH.
--- NOTE | 2025-06-22 19:15 | NUR ---
RECEIVED BEDSIDE REPORT FROM CARLIE KEMP. NO NEEDS AT THIS TIME. CALL LT IN REACH.
--- NOTE | 2025-06-22 21:20 | NUR ---
NOTIFIED ARMANDO SANTIZO OF PT'S SOFT BP OF 91/59. PER DARLYN, HOLD LISINIPRIL 10MG FOR NOW.
--- NOTE | 2025-06-22 21:55 | NUR ---
PT SITTING UP IN BED VISITING WITH SON. CALL LT IN REACH.
--- NOTE | 2025-06-22 22:57 | NUR ---
TRANSFER OF CARE AND REPORT GIVEN TO MILA GREENFIELD.
[2025-06-23 00:04] VITALS: BP 107/79
[2025-06-23 02:56] VITALS: BP 124/63
--- NOTE | 2025-06-23 04:07 | NUR ---
SHIFT SUMMARY: PT IS AOX 3-4 AND A 2P AST. PT TURNED MUCH HE WOULD LET US WHICH WAS ABOUT EVERY 4 HOURS. PT EDUCATED ON IMPORTANCE OF REPOSITIONING. MEPIPLEX IN PLACE ON COCCYX FOR STAGE 1 [place] AREA THAT IS NOT OPEN. NO ACUTE CHNAGES THIS SHIFT
[2025-06-23 05:21] LABS: BASOPHILS ABSOLUTE AUTO 0.05 K/mm3 (0.00-0.23); BASOPHILS PERCENT AUTO 1 % (0-2); EOSINOPHILS ABSOLUTE AUTO 0.11 K/mm3 (0.00-0.68); EOSINOPHILS PERCENT AUTO 1 % (0-6); Hematocrit 33.9 % (37.0-53.0); Hemoglobin 11.6 g/dL (13.5-17.5); IMMATURE GRAN ABSOLUTE AUTO 0.05 K/mm3 (0.00-0.10); IMMATURE GRAN PERCENT AUTO 1 % (0-1); LYMPHOCYTES ABSOLUTE AUTO 1.47 K/mm3 (0.84-5.20); LYMPHOCYTES PERCENT AUTO 16 % (21-46); MONOCYTES ABSOLUTE AUTO 0.45 K/mm3 (0.16-1.47); MONOCYTES PERCENT AUTO 5 % (4-13); Mean Corpuscular HGB Conc 34.2 g/dL (31.5-36.5); Mean Corpuscular Volume 91 fL (80-100); NEUTROPHILS ABSOLUTE AUTO 7.00 K/mm3 (1.96-9.15); NEUTROPHILS PERCENT AUTO 77 % (41-73); NRBC ABSOLUTE 0.00 K/mm3 (0.00-0.02); NRBC Auto 0.0 /100 WBC (0.0-0.2); Platelet Count 213 K/mm3 (150-400); RDW Coefficient Variation 13.0 % (11.7-14.2); RDW Standard Deviation 42.7 fL (35.1-46.3)
[2025-06-23 05:47] LABS: Alanine Aminotransfer (ALT/SGP 32.0 U/L (12-78); Albumin, Blood 3.0 g/dL (3.4-5.0); Albumin/Globulin Ratio 1.1 (0.8-1.8); Anion Gap 6.0 mmol/L (3-11); Aspartate Aminotrans (AST/SGOT 18.0 U/L (12-37); Bilirubin, Total 0.3 mg/dL (0.1-1.0); Blood Urea Nitrogen 11.0 mg/dL (8-24); CO2, Blood 28.0 mmol/L (21-32); Calcium, Blood 8.5 mg/dL (8.5-10.1); Chloride, Blood 102.0 mmol/L (98-108); Creatinine, Blood 0.67 mg/dL (0.60-1.20); Globulin, Blood 2.8 g/dL (2.2-4.0); Glucose, Blood 111.0 mg/dL (70-99); Potassium, Blood 4.0 mmol/L (3.5-5.5); Sodium, Blood 132.0 mmol/L (136-145); Total Protein, Blood 5.8 g/dL (6.4-8.2)
[2025-06-23 07:53] VITALS: BP 151/71
[2025-06-23] MEDS ORDERED: LORazepam 2 MG/ML 1ML Injection IV ONE ×2 (09:20→11:55)
[2025-06-23 10:07] LABS: FACTIN SMOOTH MUSCLE,IGG ELISA 3 Units (0-19)
[2025-06-23] MEDS ORDERED: METFORMIN HCL500 M3 PO (10:27)
--- NOTE | 2025-06-23 11:35 | NUR ---
REPOSITIONED PATIENT ON RIGHT SIDE SLIGHTLY, HE DECLINED TO BE OFF HIS COCCYX, PILLOW PLACED UNDER LEGS.
[2025-06-23] MEDS ORDERED: Magnesium Sulf 2 GM/Water 50ML 50 ML IV ONE (14:20)
[2025-06-23] MEDS ORDERED: LevoFLOXacin 750 MG/D5W 150ML 150 ML IV SCH (14:30)
[2025-06-23 14:58] LABS: ACETYLCHOLINE BINDING ANTIBODY 0.0 nmol/L (0.0-0.4); ACETYLCHOLINE BLOCKING AB 7 % (0-26)
[2025-06-23 15:05] VITALS: BP 102/78
--- NOTE | 2025-06-23 16:45 | NUR ---
SHIFT SUMMARY PT AOX3/4, COOPERATIVE, ABLE TO MAKE NEEDS KNONW. PT HAS BEEN BEDREST FOR MOST OF SHIFT, THIS RN DID ATTEMPT TO GET PT OOB TO BATHROOM THIS AM, AND WAS UNSUCCESSFUL, DID RETURN TO BED SAFELY DUE TO PT "NOT BEING ABLE TO MOVE HIS FEET". C/O PAIN MOSTLY THIS SHIFT, MEDICATING PER EMAR. MRI PERFORMED TODAY. TOLERATING MEDICATIONS. PT BROTHER WOULD LIKE UPDATE FROM MD, PHONE NUMBER ON ELECTRONIC CHART. BED IN LOWEST POSITION, CALL LIGHT WITHIN REACH.
[2025-06-23 17:39] VITALS: BP 119/68
[2025-06-23 19:27] VITALS: BP 112/67
[2025-06-24 02:30] VITALS: BP 143/74
--- NOTE | 2025-06-24 04:02 | NUR ---
SHIFT SUMMARY PATIENT HAD NO ACUTE CHANGES. ALERT ORIENTED, FLAT AFFECT, AND BEDREST. DENIES CHEST PAIN, SOB, AND N/V. VSS/AFEBRILE. PIV INTACT. REPORTED BACK/LEG PAIN AND IV TORADOL GIVEN PER EMAR AND LATER OXYCODONE 5 MG. CALL LIGHT IN REACH. BED IN LOWEST POSITION. WILL CONTINUE TO MONITOR UNTIL DAY SHIFT NURSE ASSUMES CARE.
[2025-06-24 06:07] LABS: BASOPHILS ABSOLUTE AUTO 0.05 K/mm3 (0.00-0.23); BASOPHILS PERCENT AUTO 1 % (0-2); EOSINOPHILS ABSOLUTE AUTO 0.08 K/mm3 (0.00-0.68); EOSINOPHILS PERCENT AUTO 1 % (0-6); Hematocrit 33.9 % (37.0-53.0); Hemoglobin 11.5 g/dL (13.5-17.5); IMMATURE GRAN ABSOLUTE AUTO 0.05 K/mm3 (0.00-0.10); IMMATURE GRAN PERCENT AUTO 1 % (0-1); LYMPHOCYTES ABSOLUTE AUTO 1.37 K/mm3 (0.84-5.20); LYMPHOCYTES PERCENT AUTO 16 % (21-46); MONOCYTES ABSOLUTE AUTO 0.42 K/mm3 (0.16-1.47); MONOCYTES PERCENT AUTO 5 % (4-13); Mean Corpuscular HGB Conc 33.9 g/dL (31.5-36.5); Mean Corpuscular Volume 92 fL (80-100); NEUTROPHILS ABSOLUTE AUTO 6.48 K/mm3 (1.96-9.15); NEUTROPHILS PERCENT AUTO 77 % (41-73); NRBC ABSOLUTE 0.00 K/mm3 (0.00-0.02); NRBC Auto 0.0 /100 WBC (0.0-0.2); Platelet Count 215 K/mm3 (150-400); RDW Coefficient Variation 13.1 % (11.7-14.2); RDW Standard Deviation 43.9 fL (35.1-46.3)
[2025-06-24 06:43] LABS: Alanine Aminotransfer (ALT/SGP 30.0 U/L (12-78); Albumin, Blood 3.1 g/dL (3.4-5.0); Albumin/Globulin Ratio 1.1 (0.8-1.8); Anion Gap 6.0 mmol/L (3-11); Aspartate Aminotrans (AST/SGOT 24.0 U/L (12-37); Bilirubin, Total 0.4 mg/dL (0.1-1.0); Blood Urea Nitrogen 13.0 mg/dL (8-24); CO2, Blood 29.0 mmol/L (21-32); Calcium, Blood 8.7 mg/dL (8.5-10.1); Chloride, Blood 101.0 mmol/L (98-108); Creatinine, Blood 0.82 mg/dL (0.60-1.20); Globulin, Blood 2.8 g/dL (2.2-4.0); Glucose, Blood 96.0 mg/dL (70-99); Potassium, Blood 4.3 mmol/L (3.5-5.5); Sodium, Blood 132.0 mmol/L (136-145); Total Protein, Blood 5.9 g/dL (6.4-8.2)
[2025-06-24 07:57] VITALS: BP 162/84
[2025-06-24 11:23] LABS: MUSK AB IGG CBA IFA SCREEN, S <1:10 (<1:10)
[2025-06-24 16:14] VITALS: BP 145/85
--- NOTE | 2025-06-24 17:16 | NUR ---
SHIFT SUMMARY PT AOX4, 2 ASSIST IN THE BED OR WHEN OUT OF BED. CALLS AND MAKES HIS NEEDS KNOWN. MEDICATED FOR PAIN DURING THE SHIFT. FAMILY AT THE BS, BROTHER UPDATED ON HIS STATUS. POSSIBLE DC TOMORROW TO A SNF PER PT RECOMMENDATION. USES THE URINAL WITH ASSISTANCE. REPOSITIONED THROUGHOUT THE SHIFT. CALL LIGHT WITHIN REACH, BED LOCKED AND IN THE LOWEST POSITION. WILL REPORT TO ONCOMING NURSE.
[2025-06-24 19:27] VITALS: BP 127/78
[2025-06-24 21:07] VITALS: BP 95/63
[2025-06-25 01:23] VITALS: BP 149/74
[2025-06-25 02:47] VITALS: BP 141/83
--- NOTE | 2025-06-25 03:17 | NUR ---
NO ACUTE CHANGES DURING SHIFT. PATIENT ALERT AND ORIENTED X 3-4, ABLE TO MAKE NEEDS KNOWN. PATIENT IS MEDICATED FOR PAIN- SEE EMAR. REPOSITIN FOR PAIN, PASSIVE RANGE OF MOTION DONE TO HELP WITH LEG CRAMPS, DISTRACTION PROVIDED FOR PAIN REDUCING TECHNIQUE.PATIENT ON ROOM AIR. PATIENT TURNED FREQUENTLY DURING SHIFT WITH PILLOW SUPPORTS IN PLACE. NEW MEPILEX PLACED ON COCCYX. PATIENT USES URINAL WITH ASSIST. BED IN LOW POSITION WITH WHEELS LOCKED. CALL LIGHT WITHIN REACH
[2025-06-25 05:28] LABS: BASOPHILS ABSOLUTE AUTO 0.04 K/mm3 (0.00-0.23); BASOPHILS PERCENT AUTO 0 % (0-2); EOSINOPHILS ABSOLUTE AUTO 0.10 K/mm3 (0.00-0.68); EOSINOPHILS PERCENT AUTO 1 % (0-6); Hematocrit 35.6 % (37.0-53.0); Hemoglobin 12.3 g/dL (13.5-17.5); IMMATURE GRAN ABSOLUTE AUTO 0.05 K/mm3 (0.00-0.10); IMMATURE GRAN PERCENT AUTO 1 % (0-1); LYMPHOCYTES ABSOLUTE AUTO 1.35 K/mm3 (0.84-5.20); LYMPHOCYTES PERCENT AUTO 15 % (21-46); MONOCYTES ABSOLUTE AUTO 0.44 K/mm3 (0.16-1.47); MONOCYTES PERCENT AUTO 5 % (4-13); Mean Corpuscular HGB Conc 34.6 g/dL (31.5-36.5); Mean Corpuscular Volume 91 fL (80-100); NEUTROPHILS ABSOLUTE AUTO 7.21 K/mm3 (1.96-9.15); NEUTROPHILS PERCENT AUTO 79 % (41-73); NRBC ABSOLUTE 0.00 K/mm3 (0.00-0.02); NRBC Auto 0.0 /100 WBC (0.0-0.2); Platelet Count 209 K/mm3 (150-400); RDW Coefficient Variation 13.0 % (11.7-14.2); RDW Standard Deviation 42.2 fL (35.1-46.3)
[2025-06-25 05:56] LABS: Alanine Aminotransfer (ALT/SGP 32.0 U/L (12-78); Albumin, Blood 3.1 g/dL (3.4-5.0); Albumin/Globulin Ratio 1.0 (0.8-1.8); Anion Gap 11.0 mmol/L (3-11); Aspartate Aminotrans (AST/SGOT 28.0 U/L (12-37); Bilirubin, Total 0.5 mg/dL (0.1-1.0); Blood Urea Nitrogen 11.0 mg/dL (8-24); CO2, Blood 25.0 mmol/L (21-32); Calcium, Blood 8.9 mg/dL (8.5-10.1); Chloride, Blood 101.0 mmol/L (98-108); Creatinine, Blood 0.68 mg/dL (0.60-1.20); Globulin, Blood 3.0 g/dL (2.2-4.0); Glucose, Blood 92.0 mg/dL (70-99); Potassium, Blood 4.4 mmol/L (3.5-5.5); Sodium, Blood 133.0 mmol/L (136-145); Total Protein, Blood 6.1 g/dL (6.4-8.2)
[2025-06-25 07:22] VITALS: BP 151/82
[2025-06-25] MEDS ORDERED: Polyethylene Glycol 3350 17 gm PO ONE (07:50)
[2025-06-25 15:21] VITALS: BP 140/78
--- NOTE | 2025-06-25 17:58 | NUR ---
SHIFT SUMMARY PT AOX3-4, 2P ASSIST. BOWEL CARE MEDICATIONS GIVEN PER THE EMAR, STILL NO BM. MEDICATED FOR PAIN PER THE EMAR WITH RELIEF. REPOSITIONED THROUGHOUT THE SHIFT. NO ACUTE CHANGES. PT WAS ACCEPTED TO [facility], WAITING FOR THE PT TO HAVE A BM. PROVIDER AWARE. CALL LIGHT WITHIN REACH, BED LOCKED AND IN THE LOWEST POSITION. WILL REPORT TO ONCOMING NURSE.
[2025-06-25 19:45] VITALS: BP 106/71
--- NOTE | 2025-06-26 04:44 | NUR ---
CHUTE BUILDER SUMMARY NO ACUTE CHANGE. PT IS PENDING DISCHARGE TO [facility]--PT D/C WAS DELAYED DUE TO NEED FOR BOWEL MOVEMENT. PT WAS GIVEN BOWEL CARE DAY SHIFT AND HAD MULTIPLE BOWEL MOVEMENTS. PT DISCHARGE ORDERS ARE READY AND PT SHOULD BE ABLE TO GOT TO [facility] TODAY. PT HAS BEEN WAKEFUL FOR MOST OF THE NIGHT. REPOSITIONING HAS BEEN FREQUENTLY T/O THE NIGHT. PT A/OX3. FORGETFUL AT TIMES. PT IS PAINFUL AND STIFF WITH MOVEMENT. ENCOURAGING PT TO PARTICIPATE IN ASPECTS OF CARE. CALL LIGHT ACCESSIBLE AND PT MAKING NEEDS KNOWN. BED BATH GIVEN THIS MORNING. CARE ONGOING.
[2025-06-26 07:20] VITALS: BP 129/77
--- NOTE | 2025-06-26 14:55 | NUR ---
TRIED TO CALL AND GIVE REPORT TO [facility], LEFT A MESSAGE ON ANSWERING MACHINE
--- NOTE | 2025-06-26 15:08 | NUR ---
PATIENT TRANSPORTED NOW VIA W/C TO [facility]
== END 2025-06-26 15:20 | DRG 948 ==
LOC: ER 09:05 → MEDS 14:41 → EDPENDDIS 06-25 16:49 → ENPENDDIS 06-25 16:49 → MEDS 06-26 15:20
PROVIDERS: Family Medicine; Student in an Organized Health Care Education/Training Program; ADMIT Internal Medicine
DX: R53.1 Weakness (principal); E87.1 Hypo-osmolality and hyponatremia; N39.0 Urinary tract infection, site not specified; I25.10 Atherosclerotic heart disease of native coronary artery without angina pectoris; K21.9 Gastro-esophageal reflux disease without esophagitis; F41.9 Anxiety disorder, unspecified; E87.8 Other disorders of electrolyte and fluid balance, not elsewhere classified; G47.33 Obstructive sleep apnea (adult) (pediatric); E11.65 Type 2 diabetes mellitus with hyperglycemia; E78.5 Hyperlipidemia, unspecified; L89.159 Pressure ulcer of sacral region, unspecified stage; F10.21 Alcohol dependence, in remission; Z96.641 Presence of right artificial hip joint; R97.20 Elevated prostate specific antigen [PSA]; E11.622 Type 2 diabetes mellitus with other skin ulcer; B96.89 Other specified bacterial agents as the cause of diseases classified elsewhere; R25.8 Other abnormal involuntary movements; N40.0 Benign prostatic hyperplasia without lower urinary tract symptoms; Z23 Encounter for immunization; I25.2 Old myocardial infarction; Z90.49 Acquired absence of other specified parts of digestive tract; Z87.19 Personal history of other diseases of the digestive system; Z95.5 Presence of coronary angioplasty implant and graft; Z87.891 Personal history of nicotine dependence; Z90.79 Acquired absence of other genital organ(s); Z88.0 Allergy status to penicillin; Z79.84 Long term (current) use of oral hypoglycemic drugs; Z79.899 Other long term (current) drug therapy; Z79.82 Long term (current) use of aspirin; Z79.891 Long term (current) use of opiate analgesic; Z93.3 Colostomy status
CPT/HCPCS: 36415; 70450; 70551; 71045; 72141; 72146; 72148; 73630; 80053; 81001; 83605; 83690; 83735; 84484; 85025; 85651; 86015; 86041; 86042; 86140; 86366; 86596; 87077; 87086; 87186; 87637; 93005; 93010; 96361; 96374; 96375; 97161; 97166; 97530; 97535; 99285-25; A9270; J1650; J1885; J1956; J2060; J3010; J3475; J7030; J7050